=== PATIENT | male | born 1950 | race Caucasian/White ===

== ENCOUNTER 2019-06-19 19:19 | Inpatient (IN) | payer MEDICARE ==
[~2019-06-19] VITALS: Ht 167.6 cm; Wt 105.3 kg
[2019-06-19] MEDS ORDERED: ALBUTEROL/IPRATROPIUM 2.5MG/0.5MG, 3 ML ONE (20:00)
[2019-06-19] MEDS ORDERED: ALBUTEROL/IPRATROPIUM 2.5MG/0.5MG, 3 ML NPPB ONE (20:00)
[2019-06-19] MEDS ORDERED: PLEASE ENTER ALLERGIES MC SCH (20:00)
--- NOTE | 2019-06-19 20:08 | NUR ---
RT AT BEDSIDE FOR BREATHING TX
[2019-06-19 20:21] LABS: BASOPHILS # (AUTO) 0.03 x10^3/uL (0-0.1); BASOPHILS % (AUTO) 1 % (0-1); EOSINOPHILS # (AUTO) 0.39 x10^3/uL (0-0.4); EOSINOPHILS % (AUTO) 6 % (1-7); LYMPHOCYTES # (AUTO) 1.47 x10^3/uL (1-3.4); LYMPHOCYTES % (AUTO) 24 % (22-44); MD NO; MEAN CORPUSCULAR HEMOGLOBIN 30.3 pg (27.5-34.5); MEAN CORPUSCULAR HGB CONC 32.5 g/dL (33.2-36.2); MEAN CORPUSCULAR VOLUME 93.2 fL (81-97); MEAN PLATELET VOLUME 9.8 fL (7.4-10.4); MONOCYTES # (AUTO) 0.49 x10^3/uL (0.2-0.8); MONOCYTES % (AUTO) 8 % (2-9); NEUTROPHILS # (AUTO) 3.72 x10^3/uL (1.8-6.8); NEUTROPHILS % (AUTO) 61 % (42-75); PLATELET COUNT 119 x10^3/uL (130-400); RED BLOOD COUNT 5.21 x10^6/uL (4.38-5.82)
--- NOTE | 2019-06-19 21:09 | NUR ---
HOSPITALIST AT BEDSIDE TO ADMIT PT
[2019-06-19] MEDS ORDERED: SODIUM CHLORIDE FLUSH 10ML SYR IVF PRN (21:30)
[2019-06-19] MEDS ORDERED: BISACODYL 10 MG SUPP PR PRN (21:30)
[2019-06-19] MEDS ORDERED: ONDANSETRON ODT 4 MG PO PRN (21:30)
[2019-06-19] MEDS ORDERED: morphine SULFATE 10 MG/ML, 1ML IVPush PRN (21:30)
[2019-06-19] MEDS ORDERED: ACETAMINOPHEN 325 MG TABLET PO PRN (21:30)
[2019-06-19] MEDS ORDERED: POLYETHYLENE GLYCOL 17 GM PACKET PO PRN (21:30)
[2019-06-19 22:01] LABS: HEMOGLOBIN A1C 6.7 % (4.2-6.3)
[2019-06-19 22:30] VITALS: BP 161/110
[2019-06-19] MEDS: ROPINIROLE 1MG TABLET PO SCH (23:16)
[2019-06-19] MEDS: FUROSEMIDE 20 MG/2 ML IV SCH (23:16)
[2019-06-19] MEDS: ZOLPIDEM 10MG TABLET PO PRN (23:16)
[2019-06-19] MEDS: RIVAROXABAN 15 MG TABLET PO SCH (23:17)
[2019-06-19] MEDS: SODIUM CHLORIDE FLUSH 10ML SYR IVF SCH (23:17)
[2019-06-20 01:00] LABS: TROPONIN I 0.059 ng/mL (0.000-0.045)
[2019-06-20 02:12] VITALS: BP 112/65
[2019-06-20 06:15] LABS: BASOPHILS # (AUTO) 0.03 x10^3/uL (0-0.1); BASOPHILS % (AUTO) 1 % (0-1); EOSINOPHILS # (AUTO) 0.35 x10^3/uL (0-0.4); EOSINOPHILS % (AUTO) 6 % (1-7); LYMPHOCYTES # (AUTO) 1.38 x10^3/uL (1-3.4); LYMPHOCYTES % (AUTO) 24 % (22-44); MD NO; MEAN CORPUSCULAR HEMOGLOBIN 30.3 pg (27.5-34.5); MEAN CORPUSCULAR HGB CONC 32.4 g/dL (33.2-36.2); MEAN CORPUSCULAR VOLUME 93.5 fL (81-97); MEAN PLATELET VOLUME 10.4 fL (7.4-10.4); MONOCYTES # (AUTO) 0.47 x10^3/uL (0.2-0.8); MONOCYTES % (AUTO) 8 % (2-9); NEUTROPHILS # (AUTO) 3.63 x10^3/uL (1.8-6.8); NEUTROPHILS % (AUTO) 62 % (42-75); PLATELET COUNT 121 x10^3/uL (130-400); RED BLOOD COUNT 5.13 x10^6/uL (4.38-5.82); RED CELL DISTRIBUTION WIDTH 16.9 % (9.4-14.8)
[2019-06-20 06:22] LABS: ALBUMIN 2.9 g/dL (3.4-5.0); ANION GAP 5 mmol/L (5-15); CALCIUM 8.5 mg/dL (8.5-10.1); CHLORIDE 107 mmol/L (98-107)
[2019-06-20 06:27] LABS: ALANINE AMINOTRANSFERASE 25 U/L (12-78); ALKALINE PHOSPHATASE 73 U/L (45-117); BILIRUBIN,TOTAL 0.6 mg/dL (0.2-1.0); CREATININE 1.86 mg/dL (0.7-1.3); TOTAL PROTEIN 6.3 g/dL (6.4-8.2); TROPONIN I 0.084 ng/mL (0.000-0.045)
[2019-06-20] MEDS ORDERED: ALBUTEROL SULFATE 2.5 MG/3 ML ONE (06:56)
[2019-06-20 08:44] VITALS: BP 165/103
[2019-06-20] MEDS ORDERED: ALBUTEROL SULFATE 2.5 MG/3 ML NPPB SCH (09:00)
[2019-06-20] MEDS: FUROSEMIDE 20 MG/2 ML IV SCH ×2 (09:13→17:09)
[2019-06-20] MEDS: ROPINIROLE 1MG TABLET PO SCH ×3 (09:13→20:52)
[2019-06-20] MEDS: SENNA/DOCUSATE TABLET PO SCH (09:13)
[2019-06-20] MEDS: SODIUM CHLORIDE FLUSH 10ML SYR IVF SCH ×2 (09:14→20:53)
[2019-06-20] MEDS ORDERED: ISOS60TA36 PO (10:43)
[2019-06-20] MEDS ORDERED: LIRA0.6P SQ-INSULIN (10:43)
[2019-06-20] MEDS ORDERED: COLC0.6T37 PO (10:43)
[2019-06-20] MEDS ORDERED: FLUO20TA25 PO (10:43)
[2019-06-20] MEDS ORDERED: TRAZ-96 PO (10:43)
[2019-06-20] MEDS ORDERED: METO25TA91 PO (10:43)
[2019-06-20] MEDS ORDERED: ROPI2TAB4 PO (10:43)
[2019-06-20] MEDS ORDERED: GABA600T7 PO (10:43)
[2019-06-20] MEDS ORDERED: LISI5TAB7 PO (10:43)
[2019-06-20] MEDS ORDERED: INSU100V8 SQ (10:43)
[2019-06-20] MEDS ORDERED: FURO20TA3 PO (10:43)
[2019-06-20] MEDS ORDERED: RIVA15TA PO (10:43)
[2019-06-20] MEDS ORDERED: TRAZ-137 PO (10:43)
[2019-06-20] MEDS ORDERED: ATOR-2 PO (10:43)
[2019-06-20] MEDS ORDERED: ALBU18HF INH (10:43)
[2019-06-20 10:48] VITALS: BP 170/111
[2019-06-20 10:58] VITALS: BP 159/100
[2019-06-20] MEDS ORDERED: ALBU8.5H8 INH (11:06)
[2019-06-20] MEDS ORDERED: COLCHICINE 0.3 MG PO SCH (11:30)
[2019-06-20] MEDS ORDERED: ROPINIROLE 1MG TABLET PO SCH (11:30)
[2019-06-20] MEDS ORDERED: INSULIN GLARGINE 100 UNITS/ML, PEN SQ-INSULIN SCH ×2 (11:30→21:00)
[2019-06-20] MEDS: METOPROLOL SUCCINATE 25 MG TAB.ER.24H PO SCH (11:53)
[2019-06-20] MEDS: ISOSORBIDE MONONITRATE ER 60 MG TABLET PO SCH (11:54)
[2019-06-20] MEDS: LISINOPRIL 5 MG TABLET PO SCH (11:54)
[2019-06-20] MEDS ORDERED: COLCHICINE 0.6 MG CAPSULE PO ONE (12:00)
[2019-06-20] MEDS ORDERED: ALBUTEROL SULFATE 2.5 MG/3 ML NPPB PRN (12:00)
[2019-06-20] MEDS ORDERED: COLCHICINE 0.6 MG CAPSULE PO SCH (12:00)
[2019-06-20] MEDS: COLCHICINE 0.6 MG CAPSULE PO SCH (13:00)
[2019-06-20 13:35] VITALS: BP 116/65
[2019-06-20] MEDS: ALBUTEROL SULFATE 2.5 MG/3 ML NPPB SCH ×2 (14:20→20:08)
[2019-06-20] MEDS ORDERED: TEMPLATE NON-FORMULARY MED. (Albuterol Sulfate (Proair Hfa) 1 PUFF) INH SCH (16:00)
[2019-06-20] MEDS ORDERED: RIVAROXABAN 15 MG TABLET PO SCH (16:30)
[2019-06-20] MEDS: RIVAROXABAN 15 MG TABLET PO SCH (17:35)
[2019-06-20] MEDS: INSULIN REGULAR 100 UNITS/ML, 3ML VIAL SQ-INSULIN SCH ×2 (18:24→20:20)
[2019-06-20 18:33] LABS: TROPONIN I 0.061 ng/mL (0.000-0.045)
[2019-06-20 20:38] VITALS: BP 107/60
[2019-06-20] MEDS ORDERED: ROPINIROLE 0.25MG TABLET ONE (20:45)
[2019-06-20] MEDS: ZOLPIDEM 10MG TABLET PO PRN (20:51)
[2019-06-20] MEDS ORDERED: ATORVASTATIN 80 MG TABLET PO SCH (21:00)
[2019-06-20] MEDS ORDERED: TRAZODONE 50MG TABLET PO SCH (21:00)
[2019-06-20] MEDS ORDERED: GABAPENTIN 300 MG CAPSULE PO SCH (21:00)
[2019-06-21] MEDS: ALBUTEROL SULFATE 2.5 MG/3 ML NPPB SCH ×2 (02:34→08:02)
[2019-06-21 03:12] VITALS: BP 131/84
[2019-06-21 05:11] LABS: CHLORIDE 105 mmol/L (98-107)
[2019-06-21 05:16] LABS: ANION GAP 5 mmol/L (5-15); CALCIUM 8.9 mg/dL (8.5-10.1)
[2019-06-21 06:57] VITALS: BP 146/91
[2019-06-21] MEDS: INSULIN REGULAR 100 UNITS/ML, 3ML VIAL SQ-INSULIN SCH (07:00)
[2019-06-21] MEDS ORDERED: FLUOXETINE HCL 20 MG CAPSULE PO SCH (09:00)
[2019-06-21] MEDS: SODIUM CHLORIDE FLUSH 10ML SYR IVF SCH (09:00)
[2019-06-21] MEDS: FUROSEMIDE 20 MG/2 ML IV SCH (10:16)
[2019-06-21] MEDS: ROPINIROLE 1MG TABLET PO SCH (10:17)
[2019-06-21] MEDS: COLCHICINE 0.6 MG CAPSULE PO SCH (10:17)
[2019-06-21] MEDS: LISINOPRIL 5 MG TABLET PO SCH (10:17)
[2019-06-21] MEDS: SENNA/DOCUSATE TABLET PO SCH (10:17)
[2019-06-21] MEDS: ISOSORBIDE MONONITRATE ER 60 MG TABLET PO SCH (10:18)
[2019-06-21] MEDS: METOPROLOL SUCCINATE 25 MG TAB.ER.24H PO SCH (10:18)
[2019-06-21] MEDS ORDERED: LIRA0.6P SQ-INSULIN (11:01)
[2019-06-21] MEDS ORDERED: ISOS60TA36 PO (11:01)
[2019-06-21] MEDS ORDERED: FLUO20TA25 PO (11:01)
[2019-06-21] MEDS ORDERED: FURO20TA3 PO (11:01)
[2019-06-21] MEDS ORDERED: ALBU18HF INH (11:01)
[2019-06-21] MEDS ORDERED: ATOR-2 PO (11:01)
[2019-06-21] MEDS ORDERED: ROPI2TAB4 PO (11:01)
[2019-06-21] MEDS ORDERED: RIVA15TA PO (11:01)
[2019-06-21] MEDS ORDERED: GABA600T7 PO (11:01)
[2019-06-21] MEDS ORDERED: LISI5TAB7 PO (11:01)
[2019-06-21] MEDS ORDERED: COLC0.6T37 PO (11:01)
[2019-06-21] MEDS ORDERED: METO25TA91 PO (11:01)
[2019-06-21] MEDS ORDERED: TRAZ-96 PO (11:01)
== END 2019-06-21 11:11 | disposition left against medical advice (07) | DRG 280 ==
LOC: ED 21:27 → EDIP 21:41 → 5SO 22:30
PROVIDERS: ADMIT Internal Medicine; ATTEND Internal Medicine
DX: I13.0 Hypertensive heart and chronic kidney disease with heart failure and stage 1 through stage 4 chronic kidney disease, or unspecified chronic kidney disease (principal); I21.A1 Myocardial infarction type 2; I50.33 Acute on chronic diastolic (congestive) heart failure; D68.69 Other thrombophilia; I48.20 Chronic atrial fibrillation, unspecified; E11.22 Type 2 diabetes mellitus with diabetic chronic kidney disease; E66.09 Other obesity due to excess calories; E78.5 Hyperlipidemia, unspecified; G25.81 Restless legs syndrome; I25.10 Atherosclerotic heart disease of native coronary artery without angina pectoris; I25.5 Ischemic cardiomyopathy; I50.9 Heart failure, unspecified; Z53.29 Procedure and treatment not carried out because of patient's decision for other reasons; J44.9 Chronic obstructive pulmonary disease, unspecified; M10.9 Gout, unspecified; N18.3 Chronic kidney disease, stage 3 (moderate); Z79.4 Long term (current) use of insulin; Z82.3 Family history of stroke; Z87.891 Personal history of nicotine dependence; Z91.19 Patient's noncompliance with other medical treatment and regimen; Z95.5 Presence of coronary angioplasty implant and graft; Z93.0 Tracheostomy status
CPT/HCPCS: 36415; 71045; 80048; 80053; 82962; 83036; 83735; 84100; 84484; 85025; 93005; 93306; 94640; 99285; G0378; J1815; J7613; J7620; J1940